=== PATIENT | female | born 1995 | race Caucasian/White ===

== ENCOUNTER 2016-12-15 22:35 | Emergency (ER) | payer SELFPAY ==
[~2016-12-15] VITALS: Ht 147.3 cm; Wt 56.8 kg
[2016-12-15 22:41] VITALS: TEMP 98.9
[2016-12-15] MEDS ORDERED: CELLCEPT 5500 MG/TAB PO ×2 (22:43)
[2016-12-15] MEDS ORDERED: TRI-SPRINTEC 281 TAB PO (22:44)
[2016-12-15] MEDS ORDERED: HUMIRA40 MG/0.8 SQ (22:44)
[2016-12-16] MEDS ORDERED: CRUTCHES MC (00:07)
[2016-12-16 00:10] VITALS: BP 129/74; PULSE 77
== END 2016-12-16 00:10 | disposition home or self-care (01) ==
LOC: COL.ER 22:35
DX: S86.911A Strain of unspecified muscle(s) and tendon(s) at lower leg level, right leg, initial encounter (principal); W01.0XXA Fall on same level from slipping, tripping and stumbling without subsequent striking against object, initial encounter

== ENCOUNTER 2020-01-23 08:35 | Emergency (ER) | payer SELFPAY ==
[~2020-01-23] VITALS: Ht 147.3 cm; Wt 56.8 kg
[~2020-01-23 08:35] MED LIST: CELLCEPT 5500 MG/TAB PO; CRUTCHES MC; HUMIRA40 MG/0.8 SQ; TRI-SPRINTEC 281 TAB PO
[2020-01-23 08:38] VITALS: TEMP 98.3
[2020-01-23] MEDS ORDERED: LEXAPRO20 MG PO (08:41)
[2020-01-23] MEDS ORDERED: FOSAMAX 70MG TA70 MG PO (08:42)
[2020-01-23] MEDS ORDERED: ONE-A-DAY ESSE1 EACH PO (08:42)
[2020-01-23] MEDS ORDERED: VITAMIN D31000 IU PO (08:42)
[2020-01-23] MEDS ORDERED: VITAMINC1000TA PO (08:43)
[2020-01-23] MEDS ORDERED: NORCO 325 MG-51 TAB PO (11:01)
[2020-01-23] MEDS ORDERED: FLEXERIL 1010 MG/TAB PO (11:01)
[2020-01-23 11:29] VITALS: BP 137/90; PULSE 86
== END 2020-01-23 11:29 | disposition home or self-care (01) ==
LOC: COL.ER 08:35
PROVIDERS: Physician Assistant
DX: S20.219A Contusion of unspecified front wall of thorax, initial encounter (principal); S29.012A Strain of muscle and tendon of back wall of thorax, initial encounter; F41.9 Anxiety disorder, unspecified; V43.52XA Car driver injured in collision with other type car in traffic accident, initial encounter
CPT/HCPCS: J1885; J2060; J2270; J2405; J7030